=== PATIENT | female | born 1980 | race Caucasian/White ===

== ENCOUNTER 2017-07-20 18:45 | Emergency (ER) | payer OTHER ==
[~2017-07-20] VITALS: Ht 162.6 cm; Wt 89.3 kg
[2017-07-20 19:43] LABS: HEMATOCRIT 39.2 % (36.0-46.0); HEMOGLOBIN 13.3 G/DL (11.9-15.5); MCH 31.4 PG (29.0-34.0); MCHC 33.9 G/DL (30.0-36.0); MCV 92.5 FL (83-99); PLATELET COUNT 253 K/uL (156-360); RBC DIS.WIDTH-CV 12.2 % (11.8-14.6); RBC DIS.WIDTH-SD 41.2 % (39-53); RED BLOOD COUNT 4.24 M/uL (3.80-5.20); WHITE BLOOD COUNT 7.6 K/uL (4.1-10.2)
[2017-07-20] MEDS ORDERED: BUSPAR5 MG PO (19:49)
[2017-07-20] MEDS ORDERED: XULANE PATCH1 EACH TD (19:50)
[2017-07-20 20:11] LABS: CHLORIDE 107 MEQ/L (99-109); POTASSIUM 3.6 MEQ/L (3.7-5.4); SODIUM 140 MEQ/L (136-147)
[2017-07-20 20:16] LABS: CREATININE 0.8 MG/DL (0.6-1.3); GFR ESTIMATE (CALCULATED) > 59 mL/min/; GLUCOSE 121 mg/dL (70-99); UREA NITROGEN (BUN) 15 mg/dL (9-23)
[2017-07-20 20:20] LABS: TROP-I INTERPRETATION NEGATIVE; TROPONIN-I < 0.01 ng/mL (0.0-0.30)
[2017-07-20 22:56] VITALS: BP 118/87
== END 2017-07-20 23:02 | disposition home or self-care (01) ==
LOC: EME 18:45
PROVIDERS: Emergency Medicine
DX: G56.02 Carpal tunnel syndrome, left upper limb (principal); R51 Headache; M79.89 Other specified soft tissue disorders; R20.0 Anesthesia of skin; Z88.0 Allergy status to penicillin
CPT/HCPCS: 70450; 71046; 80048; 84484; 85027; 93005; 93971; 99281; 99285